=== PATIENT | female | born 1960 | race Caucasian/White ===

== ENCOUNTER 2016-08-14 17:45 | Emergency (ER) | payer OTHER ==
[2016-08-14 17:35] LABS: BASOPHILS 0.2 %; BASOPHILS ABSOLUTE 0.01 10/3/uL (0.0-0.16); EOSINOPHILS 0.6 %; EOSINOPHILS ABSOLUTE 0.03 10/3/uL (0.0-0.53); ER CBC TAT 0 Hrs 08 Mins; HEMATOCRIT 38.9 % (36.0-48.0); HEMOGLOBIN 14.1 g/dL (12.0-16.0); IMMATURE GRANULOCYTES 0.2 %; IMMATURE GRANULOCYTES ABSOLUTE 0.01 10/3/uL (0.0-0.11); LYMPHOCYTES 31.6 %; MEAN CORPUS HGB CONC 36.2 g/dL (32.0-36.0); MEAN CORPUSCULAR HEMOGLOB 31.5 pg (26.0-34.0); MEAN PLATELET VOLUME 9.9 fL (9.2-13.0); MONOCYTES 6.9 %; MONOCYTES ABSOLUTE 0.37 10/3/uL (0.21-1.20); NEUTROPHILS 60.5 %; NEUTROPHILS ABSOLUTE 3.26 10/3/uL (2.02-8.40); PLATELET COUNT 118 10/3/uL (150-400); RBC DISTRIBUTION WIDTH 14.8 % (12.0-16.0); RED CELL COUNT 4.47 10/6/uL (4.0-5.6); WHITE BLOOD CELLS 5.4 10/3/uL (4.5-10.5)
[2016-08-14 17:39] LABS: MANUAL DIFF NO %
[~2016-08-14 17:45] MED LIST: BENTYL20 PO; CALTRA600D PO; CEFT5 PO; DEPAKOT500 PO; HYDROCHLOROT25 MG PO; KLONO5 PO; LYRICA150 MG PO; METHATAB10 PO; NAP500 PO; NORCO1 TA1 PO; NORV5 PO; PRILO PO; PROAIR HFA INH; PROZAC40 MG PO; REMERON30 MG PO; SYNTHROID200 MCG PO; ZESTORETIC1 TA1 PO; ZIAC2 PO; ZINC PO; ZOMIG ZMT5 MG PO
[2016-08-14 17:55] LABS: A/G RATIO 0.9 (0.7-1.9); ALBUMIN 3.2 G/DL (3.5-5.0); CALCIUM, SERUM 8.9 MG/DL (8.5-10.4); CHLORIDE, SERUM 106 MMOL/L (96-112); CO2 (CARBON DIOXIDE) 32 MMOL/L (24-34); GFR AFRICAN AMERICAN 118 ML/MIN (>=60); GFR NON AFRICAN AMERICAN 102 ML/MIN (>=60); GLOBULIN 3.5 G/DL (2.5-4.1); POTASSIUM, SERUM 3.5 MMOL/L (3.5-5.3); SGOT(AST) 75 U/L (5-40); SGPT(ALT) 100 U/L (5-65); SODIUM, SERUM 140 MMOL/L (135-148); TOTAL BILIRUBIN 0.9 MG/DL (0-1.2); TOTAL PROTEIN 6.7 G/DL (6.0-8.5)
[2016-08-14 17:56] LABS: ALKALINE PHOSPHATASE 167 U/L (45-117); BUN (BLOOD UREA NITROGEN) 14 MG/DL (6-23); CPK 49 U/L (0-200); DEPAKENE (VALPROIC ACID) < 3.0 MCG/ML (50.0-100.0); GLUCOSE, SERUM 129 MG/DL (60-99)
[2016-08-14 20:26] LABS: TROPONIN I 0.02 NG/ML (<0.05)
[2016-08-14 21:06] LABS: BD FL SOURCE (NOT ORD) SYNOVIAL FLUID; BF TOTAL CELL CT (NOT ORD 110 /MM3; BODY FLUID RBC (NOT ORD) 1000 /MM3
[2016-08-14 21:19] LABS: BD FL LYMPH (NOT ORD) 13 %; BF BASO (NOT OF) 0 %; BF LARGE MONONUCLEAR 81 %; BODY FLUID EOS (NOT ORD) 0 %; BODY FLUID SEG (NOT ORD) 6 %
== END 2016-08-14 21:55 | disposition home or self-care (01) ==
LOC: ER 17:45
PROVIDERS: Emergency Medicine
PROC: 0M9N3ZZ Drainage of Right Knee Bursa and Ligament, Percutaneous Approach (ICD-10-PCS; principal; 2016-08-14)
DX: M71.21 Synovial cyst of popliteal space [Baker], right knee (principal); R11.2 Nausea with vomiting, unspecified; R10.9 Unspecified abdominal pain; F32.9 Major depressive disorder, single episode, unspecified; Z90.89 Acquired absence of other organs; Z88.2 Allergy status to sulfonamides; Z88.1 Allergy status to other antibiotic agents; Z79.899 Other long term (current) drug therapy
CPT/HCPCS: 73502-RT; 73560-RT; 74176; 80053; 80164; 82550; 83690; 84484; 85025; 87070; 87205; 89051; 93005; 93971; 96374; 96375; 99285; J1170; J2405